=== PATIENT | female | born 1935 | race Caucasian/White ===

== ENCOUNTER 2016-09-10 12:25 | Emergency (ER) | payer MEDICARE ==
[~2016-09-10 12:25] MED LIST: ASPIR-LOW81 MG PO; GLUCOPHAGE XR500 MG PO; GLUCOTROL XL 5 M5 MG PO; PRINIVIL20 MG PO
[2016-09-10 14:03] LABS: HEMOGLOBIN 9.5 gm/dl (12.3-15.3); RED BLOOD COUNT 3.87 M/UL (4.00-5.10); WHITE BLOOD COUNT 9.6 K/UL (4.5-11.0)
[2016-09-10 14:29] LABS: BUN/CREATININE RATIO 34 (0-10)
== END 2016-09-10 18:25 | disposition home or self-care (01) ==
LOC: ER1 12:25
PROVIDERS: Emergency Medicine
DX: R41.82 Altered mental status, unspecified (principal); R53.1 Weakness; D64.9 Anemia, unspecified; R31.9 Hematuria, unspecified; E87.1 Hypo-osmolality and hyponatremia; E11.9 Type 2 diabetes mellitus without complications; I10 Essential (primary) hypertension; Z88.0 Allergy status to penicillin; Z79.84 Long term (current) use of oral hypoglycemic drugs; Z79.82 Long term (current) use of aspirin; Z79.899 Other long term (current) drug therapy
CPT/HCPCS: 36415; 70450; 71010; 80053; 81001; 82140; 82550; 82553; 83605; 83690; 83874; 84484; 85025; 87040; 93005; 99284

== ENCOUNTER → 2016-09-19 | Outpatient (CLI) | payer MEDICARE ==
[~2016-09-19] MED LIST changes: +BACTROBAN OINT22 GM TOP; +CLARITIN10 MG PO; +DOC-Q-LAX TABL1 EACH PO; +IBUPROFEN400 MG PO; +LIPITOR TAB 1010 MG PO; +MAXZIDE 75 MG-1 EACH PO; +ZOFRAN ODT 4 MG4 MG PO
== END ==
LOC: MRI 08:38
DX: R41.82 Altered mental status, unspecified (principal); I63.9 Cerebral infarction, unspecified; R53.1 Weakness; R90.89 Other abnormal findings on diagnostic imaging of central nervous system; J34.89 Other specified disorders of nose and nasal sinuses; E04.2 Nontoxic multinodular goiter; I77.1 Stricture of artery; I65.23 Occlusion and stenosis of bilateral carotid arteries; I34.0 Nonrheumatic mitral (valve) insufficiency; I07.1 Rheumatic tricuspid insufficiency
CPT/HCPCS: ECHO; 70551; 93306; 93880

== ENCOUNTER 2016-10-29 19:27 | Emergency (ER) | payer MEDICARE ==
[~2016-10-29 19:27] MED LIST changes: -BACTROBAN OINT22 GM TOP; -CLARITIN10 MG PO; -DOC-Q-LAX TABL1 EACH PO; -IBUPROFEN400 MG PO; -LIPITOR TAB 1010 MG PO; -MAXZIDE 75 MG-1 EACH PO; -ZOFRAN ODT 4 MG4 MG PO
[2016-10-29 22:19] LABS: RED BLOOD COUNT 3.22 M/UL (4.00-5.10); WHITE BLOOD COUNT 6.5 K/UL (4.5-11.0)
[2016-10-29 22:42] LABS: BUN/CREATININE RATIO 33 (0-10)
== END 2016-10-30 03:05 | disposition home or self-care (01) ==
LOC: ER1 19:27
PROVIDERS: Physician Assistant
DX: K59.00 Constipation, unspecified (principal); E11.9 Type 2 diabetes mellitus without complications; I10 Essential (primary) hypertension; K25.9 Gastric ulcer, unspecified as acute or chronic, without hemorrhage or perforation; Z79.84 Long term (current) use of oral hypoglycemic drugs; Z88.0 Allergy status to penicillin; Z79.82 Long term (current) use of aspirin; Z79.899 Other long term (current) drug therapy; R11.2 Nausea with vomiting, unspecified
CPT/HCPCS: 36415; 51702; 80053; 81001; 83690; 85025; 87086; 96361; 96374; 99284; J2405

== ENCOUNTER 2016-11-08 15:22 | Inpatient (IN) | payer MEDICARE ==
[~2016-11-08] VITALS: Ht 180.3 cm; Wt 59.0 kg
[2016-11-08 17:37] LABS: RED BLOOD COUNT 4.29 M/UL (4.00-5.10); WHITE BLOOD COUNT 7.6 K/UL (4.5-11.0)
[2016-11-08 17:49] LABS: BUN/CREATININE RATIO 40 (0-10)
[2016-11-08] MEDS ORDERED: DOC-Q-LAX TABL1 EACH PO (17:56)
[2016-11-08] MEDS ORDERED: BACTROBAN OINT22 GM TOP (17:58)
[2016-11-08] MEDS ORDERED: IBUPROFEN400 MG PO (17:59)
[2016-11-08] MEDS ORDERED: ZOFRAN ODT 4 MG4 MG PO (17:59)
[2016-11-08] MEDS ORDERED: CLARITIN10 MG PO (18:00)
[2016-11-08] MEDS ORDERED: LIPITOR TAB 1010 MG PO (18:00)
[2016-11-08] MEDS ORDERED: MAXZIDE 75 MG-1 EACH PO (18:01)
[2016-11-10 07:32] LABS: HEMOGLOBIN 10.1 gm/dl (12.3-15.3); RED BLOOD COUNT 3.96 M/UL (4.00-5.10)
[2016-11-10 07:34] LABS: WHITE BLOOD COUNT 5.3 K/UL (4.5-11.0)
[2016-11-10 07:44] LABS: BUN/CREATININE RATIO 50 (0-10)
[2016-11-12 04:16] LABS: HEMOGLOBIN 9.1 gm/dl (12.3-15.3); RED BLOOD COUNT 3.63 M/UL (4.00-5.10); WHITE BLOOD COUNT 5.8 K/UL (4.5-11.0)
[2016-11-12 04:26] LABS: BUN/CREATININE RATIO 53 (0-10)
[2016-11-14 06:42] LABS: HEMOGLOBIN 7.9 gm/dl (12.3-15.3); RED BLOOD COUNT 3.21 M/UL (4.00-5.10); WHITE BLOOD COUNT 4.8 K/UL (4.5-11.0)
[2016-11-14 07:08] LABS: BUN/CREATININE RATIO 70 (0-10)
== END 2016-11-14 15:16 | DRG 640 ==
LOC: M/S 15:22 → MED SURG 4 16:02
PROVIDERS: ADMIT Family Medicine
DX: E87.1 Hypo-osmolality and hyponatremia (principal); G93.41 Metabolic encephalopathy; C82.80 Other types of follicular lymphoma, unspecified site; E46 Unspecified protein-calorie malnutrition; Z68.1 Body mass index [BMI] 19.9 or less, adult; L97.429 Non-pressure chronic ulcer of left heel and midfoot with unspecified severity; L97.419 Non-pressure chronic ulcer of right heel and midfoot with unspecified severity; E86.0 Dehydration; I10 Essential (primary) hypertension; L89.152 Pressure ulcer of sacral region, stage 2; E11.649 Type 2 diabetes mellitus with hypoglycemia without coma; R62.7 Adult failure to thrive; D64.9 Anemia, unspecified; F03.90 Unspecified dementia, unspecified severity, without behavioral disturbance, psychotic disturbance, mood disturbance, and anxiety; Z79.84 Long term (current) use of oral hypoglycemic drugs; Z79.82 Long term (current) use of aspirin; Z79.1 Long term (current) use of non-steroidal anti-inflammatories (NSAID); Z79.899 Other long term (current) drug therapy; Z87.11 Personal history of peptic ulcer disease; Z98.890 Other specified postprocedural states; Z82.49 Family history of ischemic heart disease and other diseases of the circulatory system; Z83.3 Family history of diabetes mellitus
CPT/HCPCS: 36415; 70450; 71020; 80053; 81001; 82272; 82962; 83036; 83540; 83550; 84443; 85025; 85027; 87086; 92610; 93005; 97530; J2060; J7040